=== PATIENT | female | born 1985 | race Caucasian/White ===

== ENCOUNTER 2017-04-13 13:48 | Emergency (ER) | payer OTHER ==
[~2017-04-13] VITALS: Ht 160 cm; Wt 87.7 kg
[2017-04-13 15:42] VITALS: BP 149/90
== END 2017-04-13 15:42 | disposition home or self-care (01) ==
LOC: ED 13:48
DX: G43.909 Migraine, unspecified, not intractable, without status migrainosus (principal); Z88.1 Allergy status to other antibiotic agents
CPT/HCPCS: J1885; J2765

== ENCOUNTER 2018-01-11 19:46 | Emergency (ER) | payer OTHER ==
[~2018-01-11] VITALS: Ht 154.9 cm; Wt 91.6 kg
[2018-01-11 20:13] VITALS: Ht 154.9 cm; Wt 91.6 kg
[2018-01-11 21:57] VITALS: BP 138/92
== END 2018-01-11 21:57 | disposition home or self-care (01) ==
LOC: ED 19:46
DX: S16.1XXA Strain of muscle, fascia and tendon at neck level, initial encounter (principal); M25.511 Pain in right shoulder; Z88.0 Allergy status to penicillin; V89.2XXA Person injured in unspecified motor-vehicle accident, traffic, initial encounter; Y93.73 Activity, racquet and hand sports; Y92.89 Other specified places as the place of occurrence of the external cause; Y99.8 Other external cause status

== ENCOUNTER 2019-08-05 14:17 | Emergency (ER) | payer OTHER ==
[~2019-08-05] VITALS: Ht 154.9 cm; Wt 86.2 kg
[2019-08-05 14:30] VITALS: Ht 154.9 cm; Wt 86.2 kg
[2019-08-05 17:49] VITALS: BP 149/95
== END 2019-08-05 17:49 | disposition home or self-care (01) ==
LOC: ED 14:17
DX: S86.912A Strain of unspecified muscle(s) and tendon(s) at lower leg level, left leg, initial encounter (principal); G43.909 Migraine, unspecified, not intractable, without status migrainosus; Z88.1 Allergy status to other antibiotic agents; W01.0XXA Fall on same level from slipping, tripping and stumbling without subsequent striking against object, initial encounter; Y93.89 Activity, other specified; Y92.89 Other specified places as the place of occurrence of the external cause; Y99.8 Other external cause status
CPT/HCPCS: J1885

== ENCOUNTER 2020-07-19 15:22 | Emergency (ER) | payer OTHER ==
[~2020-07-19] VITALS: Ht 154.9 cm; Wt 95.3 kg
[2020-07-19 15:28] VITALS: Ht 154.9 cm; Wt 95.3 kg
[2020-07-19 17:07] VITALS: BP 128/72
== END 2020-07-19 17:07 | disposition home or self-care (01) ==
LOC: ED 15:22
DX: L02.412 Cutaneous abscess of left axilla (principal); G43.909 Migraine, unspecified, not intractable, without status migrainosus; Z88.1 Allergy status to other antibiotic agents
CPT/HCPCS: J2001

== ENCOUNTER 2020-07-21 13:05 | Emergency (ER) | payer OTHER ==
[~2020-07-21] VITALS: Ht 154.9 cm; Wt 98.0 kg
[2020-07-21 13:23] VITALS: Ht 154.9 cm; Wt 98.0 kg
[2020-07-21 14:13] VITALS: BP 145/86
== END 2020-07-21 14:13 | disposition home or self-care (01) ==
LOC: ED 13:05
DX: L02.412 Cutaneous abscess of left axilla (principal)